=== PATIENT | female | born 1960 ===

== ENCOUNTER 2018-06-29 21:36 | Emergency (ER) | payer OTHER ==
[2018-06-29 21:50] VITALS: BP 129/74; PULSE 80; RESP 16; TEMP 98.4; O2SAT 99
--- NOTE | 2018-06-29 22:54 | ED PDOC ---
HPI: Female Pain Additional Complaint(s): Pt. is a 57 y/o Female with pmh of htn, who reports 1 week history of pain with urination; described as a burning pain associated with lower abd pressure. Pt. otherwise feeling well, no n/v, no fevers. <Bita Viera - Last Filed: 06/29/18 23:42> <Jus Hidalgo - Last Filed: 07/02/18 04:34> Time Seen by Provider: 06/29/18 22:05 Chief Complaint (Nursing): Female Genitourinary Past Medical History Vital Signs: Last Vital Signs Temp 98.4 F 06/29/18 21:46 Pulse 80 06/29/18 21:46 Resp 16 06/29/18 21:46 BP 129/74 06/29/18 21:46 Pulse Ox 99 06/29/18 21:46 - Medical History PMH: HTN - Family History Family History: States: No Known Family Hx <Bita Viera - Last Filed: 06/29/18 23:42> Vital Signs: Last Vital Signs Temp 98.4 F 06/29/18 21:46 Pulse 80 06/29/18 21:46 Resp 16 06/29/18 21:46 BP 129/74 06/29/18 21:46 Pulse Ox 99 06/29/18 23:42 <Jus Hidalgo - Last Filed: 07/02/18 04:34> - Home Medications Home Medications: Ambulatory Orders Medication Instructions Recorded Cephalexin [cephalexin] 500 mg PO Q8 #21 cap 06/29/18 Nitrofurantoin Macrocrystals 100 mg PO Q12 #7 cap 06/29/18 [Macrobid] - Allergies Allergies/Adverse Reactions: Allergies Allergy/AdvReac Type Severity Reaction Status Date / Time No Known Allergies Allergy Verified 06/29/18 21:46 Physical Exam - Physical Exam Skin: Positive for: Normal Color Cardiovascular/Chest: Positive for: Regular Rate, Rhythm Respiratory: Positive for: Normal Breath Sounds Gastrointestinal/Abdominal: Positive for: Tenderness (mild suprapubic tenderness). Negative for: Distended, Guarding Back: Positive for: Normal Inspection. Negative for: L CVA Tenderness, R CVA Tenderness <Bita Viera - Last Filed: 06/29/18 23:42> - ECG O2 Sat by Pulse Oximetry: 99 <Bita Viera - Last Filed: 06/29/18 23:42> Medical Decision Making Medical Decision Making: Pt. well appearing, abdomen soft/nt, no cvat, voided in ED without difficulty. UA positive, keflex po given. pyridium po given. stressed importance of close f/u. UA results (+) 147 WBC, (+) 40+ rbc, (+) leuks <Bita Viera - Last Filed: 06/29/18 23:42> Disposition - Disposition Disposition: Routine/Home Disposition Time: 23:39 <Bita Viera - Last Filed: 06/29/18 23:42> <Jus Hidalgo - Last Filed: 07/02/18 04:34> - Clinical Impression Clinical Impression: Urinary tract infection - Disposition Referrals: [facility] [place] [Outside] Condition: STABLE Prescriptions: Cephalexin [cephalexin] 500 mg PO Q8 #21 cap Nitrofurantoin Macrocrystals [Macrobid] 100 mg PO Q12 #7 cap Instructions: Urinary Tract Infections in Adults Forms: [facility] (Dutch) Print Language: LAO - PA / ARTIFICIAL FOLIAGE ARRANGER / Resident Statement MD/DO has reviewed & agrees with the documentation as recorded. <Jus Hidalgo - Last Filed: 07/02/18 04:34>
[2018-06-29 23:30] LABS: URINE BACTERIA RARE (<OCC); URINE BILIRUBIN NEGATIVE (NEGATIVE); URINE BLOOD LARGE (NEGATIVE); URINE CLARITY CLOUDY (Clear); URINE COLOR STRAW (YELLOW); URINE GLUCOSE (UA) NEG (Normal); URINE LEUKOCYTE ESTERASE LARGE Leu/uL (Negative); URINE PROTEIN NEGATIVE (NEGATIVE); URINE UROBILINOGEN 0.2-1.0 mg/dL (0.2-1.0)
== END 2018-06-30 00:08 | disposition home or self-care (01) ==
LOC: H.ER 21:36
DX: N39.0 Urinary tract infection, site not specified (principal); I10 Essential (primary) hypertension